=== PATIENT | male | born 1970 | race Caucasian/White ===

== ENCOUNTER 2020-11-21 15:08 | Emergency (ER) | payer OTHER | END 2020-11-21 16:20 | disposition home or self-care (01) | LOC: ER1 15:08 | DX: S09.90XA Unspecified injury of head, initial encounter (principal); S13.4XXA Sprain of ligaments of cervical spine, initial encounter; W22.8XXA Striking against or struck by other objects, initial encounter | CPT/HCPCS: 70450; 72125; 99284 ==

== ENCOUNTER 2021-11-18 05:02 | Emergency (ER) | payer OTHER ==
[2021-11-18 05:40] LABS: HEMOGLOBIN 15.5 gm/dl (14.0-17.5); RED BLOOD COUNT 4.75 M/UL (4.20-5.50); WHITE BLOOD COUNT 5.2 K/UL (4.5-11.0)
[2021-11-18 06:03] LABS: BUN/CREATININE RATIO 14 (0-10)
== END 2021-11-18 08:27 | disposition home or self-care (01) ==
LOC: ER1 05:02
PROVIDERS: Family Medicine
DX: R07.89 Other chest pain (principal); I10 Essential (primary) hypertension
CPT/HCPCS: 71045; 80048; 82550; 82553; 84484; 85025; 93005; 99285